=== PATIENT | female | born 1950 | race Caucasian/White ===

== ENCOUNTER 2017-12-28 11:20 | Inpatient (IN) | payer OTHER ==
[2017-12-25 08:31] VITALS: BMI 27.1
[~2017-12-28 11:20] MED LIST: ceFAZolin SODIUM 1 GM VIAL IVPB ONE
--- NOTE | 2017-12-28 12:34 | HP ---
History & Physical Update - History History: No Change - Physical Physical: No Change - Assessment Assessment: No Change - Plan Plan: No Change (no change since visit on 12/22/17)
[2017-12-28] MEDS ORDERED: CEFAZOLIN 2 GM in DEXTROSE 5%-WATER - 100 ML IVPB ONE (12:35)
[2017-12-28] MEDS ORDERED: fentaNYL CITRATE 250 MCG/5 ML VIAL ONE (13:20)
[2017-12-28] MEDS ORDERED: ROCURONIUM BROMIDE 50 MG/5 ML VIAL ONE (13:21)
[2017-12-28] MEDS ORDERED: MIDAZOLAM HCL 2 MG/2 ML SINGLE DOSE VIAL ONE (13:21)
[2017-12-28] MEDS ORDERED: PROPOFOL 20 ML ONE (13:21)
[2017-12-28] MEDS ORDERED: VASOPRESSIN 20 UNITS/ML VIAL IV ONE (13:25)
[2017-12-28] MEDS ORDERED: BUPIVACAINE HCL/PF 0.25% (2.5MG/ML) 10 ML VIAL ONE (13:26)
[2017-12-28] MEDS ORDERED: ceFAZolin SODIUM 1 GM VIAL ONE (14:07)
[2017-12-28] MEDS ORDERED: ceFAZolin SODIUM 1 GM VIAL IVPB ONE (14:08)
[2017-12-28] MEDS ORDERED: DEXAMETHASONE SOD PHOSPHATE 4 MG/1 ML VIAL ONE (14:19)
[2017-12-28] MEDS ORDERED: GLYCOPYRROLATE 0.2 MG/1 ML VIAL ONE (14:51)
[2017-12-28] MEDS ORDERED: NEOSTIGMINE METHYLSULFATE 0.5 MG/ML - 10 ML MDV ONE (14:51)
--- NOTE | 2017-12-28 15:04 | OP ---
Operative Note - Note: Operative Date: 12/28/17 Pre-Operative Diagnosis: gu prolapse Operation: vag hyst colpectomy, enterocele repair, perineoplasty Surgeon: Jericho Wright Anesthesia: General Specimens Removed: uterus vag wall Estimated Blood Loss (mls): 50 Drains & Tubes with Location: [facility] Operative Report Dictated: Yes
[2017-12-28] MEDS ORDERED: ONDANSETRON 4 MG/2 ML VIAL IVPUSH PRN (15:18)
--- NOTE | 2017-12-28 15:29 | SURG ---
Surgery Hospitality Recruiter Note Hospitality Recruiter: Delmy Mott PA-C Date of Service: 12/28/17 Diagnosis: prolapse Procedure: vag hyst colpectomy, enterocele repair, perineoplasty I was present for the entirety of the operative procedure. For further detail, please refer to operative report. Visit type - Case Type Case Type: Scheduled - Emergency Emergency Visit: No - New patient This patient is new to me today: Yes Date on this admission: 12/28/17
[2017-12-28] MEDS ORDERED: LACTATED RINGERS SOLUTION 1,000 ML IV SCH (15:30)
[2017-12-28] MEDS ORDERED: oxyCODONE HCL 5 MG TABLET PO PRN (17:03)
[2017-12-28] MEDS ORDERED: KETOROLAC TROMETHAMINE 30 MG/1 ML VIAL ONE (17:12)
[2017-12-28] MEDS ORDERED: KETOROLAC TROMETHAMINE 30 MG/1 ML VIAL IVPUSH ONE (17:18)
[2017-12-28] MEDS: oxyCODONE HCL 5 MG TABLET PO PRN (21:08)
[2017-12-28] MEDS: ACETAMINOPHEN 325 MG TABLET (FP) PO PRN (21:09)
[2017-12-29] MEDS: oxyCODONE HCL 5 MG TABLET PO PRN ×2 (01:23→10:37)
[2017-12-29] MEDS: ACETAMINOPHEN 325 MG TABLET (FP) PO PRN ×2 (01:24→10:38)
--- NOTE | 2017-12-29 06:25 | OP ---
DATE OF OPERATION: 12/28/2017 PREOPERATIVE DIAGNOSES: Complete uterovaginal prolapse, gaping introitus. POSTOPERATIVE DIAGNOSES: Complete uterovaginal prolapse, gaping introitus. PROCEDURE PERFORMED: Vaginal hysterectomy with enterocele repair, colpectomy, Margarita plication, and perineoplasty. PRIMARY SURGEON: Jericho Wright MD DESCRIPTION OF PROCEDURE: After adequate anesthesia, patient was prepped and draped in dorsal lithotomy position. A dilute solution of Pitressin was injected into the anterior and posterior vaginal wall and circumferentially around the cervix. A circumferential incision was made in the cervix, and the anterior and posterior cul-de-sacs were entered without any difficulty. The uterosacral/cardinal ligament complex, followed by the uterine artery, followed by the ovarian ligament was clamped, cut, and suture ligated. The uterus was removed. Enterocele sac was closed off at its neck using 0 Vicryl suture in a circumferential stitch. This was done after the ovaries were visualized, and the tube and ovaries were visualized to be normal but too high up to take out safely from below. Once the enterocele sac was closed off at its neck, excess vaginal epithelium was excised and the endopelvic fascia plicated onto itself using 0 Vicryl suture in circumferential stitch. Vertical incision made over the anterior vaginal wall, the perivesical fascia dissected away, plicated onto itself using 0 Vicryl suture circumferential stitch x2 layers. The anterior vaginal wall and vaginal cuff were closed using 2-0 Vicryl suture in continuous fashion. A triangular incision was made on the perineum and up to the middle of the back wall of the vagina. The perirectal fascia dissected away, and the superficial perineal muscle and perirectal fascia plicated onto itself using 0 Vicryl suture in interrupted fashion, thus rebuilding the perineal body. The back wall was the vagina closed using 2-0 Vicryl suture in continuous fashion. Rectal examination negative for any foreign bodies. A cystoscopy was performed to note no foreign bodies were in the bladder and fluorescein dye emanating from both the ureteral orifices. Denny [id number]
[2017-12-29] MEDS ORDERED: SIMETHICONE 80 MG TAB.CHEW (FP) PO PRN (14:41)
--- NOTE | 2017-12-29 14:46 | PN ---
Progress Note (short form) - Note Progress Note: Anesthesia POD#1 S/P Vaginal Hysterectomy under GA VSS,some abdominal discomfort,mild pain. Nausea went away. Carmina Tsai MD.
[2017-12-29 15:04] VITALS: BP 120/45; PULSE 71; TEMP 98.6
--- NOTE | 2017-12-31 14:29 | PATH ---
Surgical Pathology Report Patient Name: EFFIE TOBAR [facility]. Rec. #: [id number] /Age/Gender: 1950 (Age: 67) / F Account: [id number] Location: [facility] OBS/SOCIETY REPORTER Taken: 12/28/2017 Received: 12/29/2017 Reported: 12/31/2017 Physicians: Jericho Wright M.D. Specimen(s) Received A: UTERUS AND CERVIX B: VAGINAL MUCOSA Clinical History Uterine prolapse Final Diagnosis A. UTERUS AND CERVIX, HYSTERECTOMY: LEIOMYOMATA. ONE ADENOMATOID TUMOR (BENIGN). ADENOMYOSIS. ATROPHIC ENDOMETRIUM. CERVIX WITH MILD CHRONIC INFLAMMATION AND SQUAMOUS METAPLASIA. B. VAGINAL WALL, EXCISION: SQUAMOUS EPITHELIUM WITH FOCAL CHRONIC INFLAMMATION. COMMENT: Immunohistochemical stained slides on sections from block A7 demonstrate the lesional cells to be positive for CK5/6, Calretinin, WT-1, while negative for MOC-31, CD31, and CD34. 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 Immunohistochemistry stains performed at [place], [place] ([id number]) interpreted at [facility]. Positive and negative controls (internal if applicable) show appropriate results. Electronically Signed Genny Barber M.D. Gross Description A. Received in formalin labeled "uterus and cervix," is a 49 g uterus with an attached cervix and no attached adnexa. The specimen measures 7.7 cm from superior to inferior, 4.2 cm from left to right and 3.0 cm from anterior to posterior. The serosa is brink-mera with focal subserosal nodules. The attached cervix measures 3.2 cm in length and averages 2.2 cm in diameter. The ectocervix is brink, smooth and glistening. The endocervix is unremarkable. The endometrial cavity measures 3 cm in length and 1.5 cm from cornu to cornu. The endometrium is brink and averages 0.1 cm in thickness. The myometrium displays multiple intramural nodules, measuring up to 1.9 cm in greatest dimension. The cut surface of the subserosal and intramural nodules is brink, rubbery and displays whorled architecture. No areas of hemorrhage or necrosis are identified. The remaining myometrium is brink-pink and averages 1.4 cm in thickness. Land Development Project [employer] sections are submitted in 9 cassettes as follows: 1-anterior cervix; 2-posterior cervix; 5-0-lqfgqczm endomyometrium; 3-1-walfhvxev endomyometrium; 7-subserosal nodules; 8-3-lierlytbyk nodules. B. Received in formalin labeled "vaginal wall," are 2 brink portions of soft tissue measuring 2.7 x 2.0 x 0.4 cm and 3.4 x 2.7 x 0.3 cm, consistent with portions of vaginal mucosa. Land Development Project Manager sections are submitted in one cassette. 12/29/201712/29/2017
== END 2017-12-29 16:30 | disposition home or self-care (01) | DRG 743 ==
LOC: JSAMEDAYSX 11:20 → EDSTATUS 12:30 → J3W 17:41
PROVIDERS: ADMIT Obstetrics & Gynecology Female Pelvic Medicine and Reconstructive Surgery; ATTEND Obstetrics & Gynecology Female Pelvic Medicine and Reconstructive Surgery
PROC: 0UBG8ZZ Excision of Vagina, Via Natural or Artificial Opening Endoscopic (ICD-10-PCS; 2017-12-28)
PROC: 0UQF4ZZ Repair Cul-de-sac, Percutaneous Endoscopic Approach (ICD-10-PCS; 2017-12-28)
PROC: 0KB Muscles, Excision (ICD-10-PCS; 2017-12-28)
PROC: 0WQNXZZ Repair Female Perineum, External Approach (ICD-10-PCS; 2017-12-28)
PROC: 0UT97ZZ Resection of Uterus, Via Natural or Artificial Opening (ICD-10-PCS; principal; 2017-12-28 12:30)
DX: N81.3 Complete uterovaginal prolapse (principal); N81.5 Vaginal enterocele; D25.9 Leiomyoma of uterus, unspecified; N80.0 Endometriosis of uterus
CPT/HCPCS: 88305-TC; 88307-TC; 94010; 94760